=== PATIENT | female | born 1960 | race Caucasian/White ===

== ENCOUNTER 2018-12-23 19:21 | Emergency (ER) | payer MEDICARE, OTHER ==
[~2018-12-23] VITALS: Ht 165.1 cm; Wt 90.9 kg
[2018-12-23] MEDS ORDERED: CITA20TA6 PO (19:25)
[2018-12-23] MEDS ORDERED: MORPHINE 4 MG/ML 1ML VIAL/SYRINGE (J2270) IV ONE (20:00)
[2018-12-23] MEDS ORDERED: ONDANSETRON 4MG/2ML VIAL (J2405) IV ONE (20:00)
[2018-12-23] MEDS ORDERED: NS 1,000 ML IV ONE (20:00)
[2018-12-23 21:08] LABS: BASO % 0.3 % (0.0-1.0); EOS % 0.1 % (0.0-3.0); HEMATOCRIT 40.3 % (36.0-47.0); HEMOGLOBIN 13.2 g/dl (12.0-15.5); LYMPH # 0.9 10^3/uL (1.5-5.0); LYMPH % 6.2 % (24.0-44.0); MEAN CORPUSCULAR HEMOGLOBIN 29.7 pg (27.0-33.0); MEAN CORPUSCULAR HGB CONC 32.8 g/dl (32.0-36.5); MEAN CORPUSCULAR VOLUME 90.6 fl (80.0-96.0); MONO # 0.7 10^3/uL (0.0-0.8); MONO % 4.6 % (0.0-5.0); NEUTROPHILS # 12.3 10^3/uL (1.5-8.5); NEUTROPHILS % 88.2 % (36.0-66.0); PLATELET COUNT, AUTOMATED 250 10^3/uL (150-450); RED BLOOD COUNT 4.45 10^6/uL (4.00-5.40)
[2018-12-23] MEDS ORDERED: ISOVUE-370 76% 100ML VIAL (Q9967) As Ordered ONE (21:40)
[2018-12-23] MEDS ORDERED: fentaNYL 100 MCG/2 ML INJECTION (J3010) IV ONE (22:00)
[2018-12-23] MEDS ORDERED: PERC5TAB12 PO (23:56)
[2018-12-24] MEDS ORDERED: OXYCODONE/APAP 5MG/325MG(BULK FOR ED) 1 TABLET PO ONE
[2018-12-24 00:52] VITALS: BP 113/61
--- NOTE | 2018-12-24 08:52 | REP ---
CT of the chest with IV contrast: Clinical history, acute by horse multiple times on the left side. There are no comparisons. There is no pneumothorax, hemothorax or pulmonary contusion. There is a small focal zone of atelectasis at the inferior tip of the lingula. The thoracic aorta is unremarkable. There is no mediastinal hematoma. Cardiac size is normal. There is no pericardial effusion. No clavicle or scapular fractures are identified. No rib fractures are identified. No vertebral body, or sternal fractures are identified. There is a small hiatal hernia. There are small areas of edema in the subcutaneous fat in the left axilla. Impression: Essentially negative CT scan of the chest except for focal areas of subcutaneous soft tissue edema in the left axilla. Electronically Signed by Kwesi Adams MD 12/24/2018 08:44 A
--- NOTE | 2018-12-24 09:03 | REP ---
CT of the abdomen and pelvis with IV contrast: The patient was kicked by horse several times on the left side. There are no comparisons. The studies performed contiguously with the chest CT this same date. There is no pneumoperitoneum or hemoperitoneum. There are no lumbar, sacral, pelvic or hip fractures. There is a small hiatal hernia. The hepatic parenchyma is mildly hypodense but otherwise unremarkable. This is compatible with hepato steatosis. The gallbladder, pancreas and spleen are unremarkable. The adrenals are unremarkable. The renal calyces and renal pelves appear dilated bilaterally, however the ureters are not dilated. This is is bilateral UPJ strictures or could be artifact from multiple bilateral parapelvic cysts or could be combination. There is no renal cortical hematoma. There is no para renal hematoma. The abdominal aorta is unremarkable. There is no periaortic or retroperitoneal hematoma. There is no focal or diffuse bowel wall thickening. The mesentery is unremarkable. There is a tiny fat containing umbilical hernia. Pelvis: There is no free fluid. The uterus, adnexa and bladder are unremarkable. There is diverticulosis without diverticulitis in the descending colon and sigmoid colon. The pelvic bowel loops are otherwise unremarkable. There are phleboliths in the pelvis. Impression: There is no pneumo perineum or hemoperitoneum. No fractures are identified. There is no solid organ injury. There is bilateral hydronephrosis versus bilateral parapelvic cysts versus combination. Diverticulosis without diverticulitis. Hepato steatosis. There are no comparison studies in our film file. Small hiatal hernia. Electronically Signed by Kwesi Adams MD 12/24/2018 08:55 A
--- NOTE | 2018-12-24 09:12 | REP ---
Lumbar spine five views: The patient was kicked by horse. Vertebral body heights and alignment are normal. There is degenerative disc disease at every lumbar level. There is no spondylolysis or spondylolisthesis. The pedicles are unremarkable. Sacroiliac articulations are unremarkable. The facet articulations are unremarkable. Impression: Degenerative disc disease at every lumbar level. No compression deformity, fracture or listhesis. There are numerous calcifications in the pelvis, likely phleboliths. Electronically Signed by Kwesi Adams MD 12/24/2018 09:03 A
--- NOTE | 2018-12-24 09:13 | REP ---
Left tibia-fibula five views : There is no fracture or dislocation. Mineralization and joint spaces are normal. There are no calcifications or foreign bodies. There is an accessory ossicle at the tip of the fibula. Impression: Negative Left tibia-fibula . Electronically Signed by Kwesi Adams MD 12/24/2018 09:04 A
--- NOTE | 2018-12-24 09:14 | REP ---
Left knee five views : There is no fracture or dislocation. There is no effusion Mineralization and joint spaces are normal. There are no calcifications or foreign bodies. There is tricompartment osteoarthritis. Impression: Tricompartment osteoarthritis. No fracture or effusion. Otherwise, negative left knee. Electronically Signed by Kwesi Adams MD 12/24/2018 09:05 A
--- NOTE | 2018-12-24 09:17 | REP ---
Left femur four views : There is no fracture or dislocation. Mineralization and joint spaces are normal. There are no calcifications or foreign bodies. Impression: Negative left femur . Electronically Signed by Kwesi Adams MD 12/24/2018 09:07 A
== END 2018-12-24 00:55 | disposition home or self-care (01) ==
LOC: M ED 19:21
DX: S30.1XXA Contusion of abdominal wall, initial encounter (principal); S80.12XA Contusion of left lower leg, initial encounter; S40.012A Contusion of left shoulder, initial encounter; W55.12XA Struck by horse, initial encounter; Y92.018 Other place in single-family (private) house as the place of occurrence of the external cause; N13.5 Crossing vessel and stricture of ureter without hydronephrosis; Z79.899 Other long term (current) drug therapy; Z87.891 Personal history of nicotine dependence
CPT/HCPCS: 71260; 72110; 73552; 73564; 73590; 74177; 80047; 85025; 96361; 96374; 96375; 99284; J2270; J2405; J3010; Q9967

== ENCOUNTER → 2020-06-20 | Outpatient (REF) | payer MEDICARE ==
[~2020-06-20] MED LIST: CITA20TA6 PO; PERC5TAB12 PO
[2020-06-20 12:06] LABS: BASO % 0.5 % (0.0-1.0); EOS # 0.1 10^3/uL (0.0-0.5); EOS % 1.1 % (0.0-3.0); HEMATOCRIT 45.9 % (36.0-47.0); HEMOGLOBIN 14.7 g/dl (12.0-15.5); LYMPH # 1.3 10^3/uL (1.5-5.0); LYMPH % 20.7 % (24.0-44.0); MEAN CORPUSCULAR HEMOGLOBIN 28.7 pg (27.0-33.0); MEAN CORPUSCULAR VOLUME 89.6 fl (80.0-96.0); MONO # 0.3 10^3/uL (0.0-0.8); NEUTROPHILS # 4.5 10^3/uL (1.5-8.5); NEUTROPHILS % 72.4 % (36.0-66.0); PLATELET COUNT, AUTOMATED 290 10^3/uL (150-450); RED BLOOD COUNT 5.12 10^6/uL (4.00-5.40); WHITE BLOOD COUNT 6.2 10^3/uL (4.0-10.0)
[2020-06-20 12:49] LABS: ALBUMIN 3.6 GM/DL (3.2-5.2); ALT/SGPT 27 U/L (12-78); BILIRUBIN,TOTAL 0.4 MG/DL (0.2-1.0); BLOOD UREA NITROGEN 22 MG/DL (7-18); CALCIUM LEVEL 8.8 MG/DL (8.8-10.2); CARBON DIOXIDE LEVEL 29 MEQ/L (21-32); CHLORIDE LEVEL 106 MEQ/L (98-107); CHOLESTEROL LEVEL 279 MG/DL (<200); CREATININE FOR GFR 0.77 MG/DL (0.55-1.30); GLOMERULAR FILTRATION RATE > 60.0 (>45); GLUCOSE, FASTING 101 MG/DL (70-100); HDL CHOLESTEROL 44 MG/DL (>40); LDL CHOLESTEROL 190 MG/DL (<100); NON-HDL-C 235 MG/DL; POTASSIUM SERUM 5.2 MEQ/L (3.5-5.1); SODIUM LEVEL 138 MEQ/L (136-145); TOTAL PROTEIN 6.6 GM/DL (6.4-8.2); TRIGLYCERIDES LEVEL 224 MG/DL (<150)
== END ==
LOC: M SFHCCLAY 09:06
PROVIDERS: ATTEND Family Medicine
DX: F32.1 Major depressive disorder, single episode, moderate (principal); J45.20 Mild intermittent asthma, uncomplicated; I10 Essential (primary) hypertension

== ENCOUNTER → 2020-08-14 | Outpatient (REF) | payer MEDICARE ==
[2020-08-14 17:19] LABS: CHOLESTEROL RISK RATIO 3.959 (<5)
== END ==
LOC: M SFHCCLAY 10:09
PROVIDERS: ATTEND Family Medicine
DX: E78.00 Pure hypercholesterolemia, unspecified (principal)

== ENCOUNTER → 2021-01-09 | Outpatient (REF) | payer MEDICARE, OTHER ==
[2021-01-09 11:45] LABS: ALBUMIN 3.2 GM/DL (3.2-5.2); ALT/SGPT 37 U/L (12-78); BILIRUBIN,TOTAL 0.5 MG/DL (0.2-1.0); BLOOD UREA NITROGEN 22 MG/DL (7-18); CARBON DIOXIDE LEVEL 27 MEQ/L (21-32); CHLORIDE LEVEL 110 MEQ/L (98-107); CHOLESTEROL LEVEL 168 MG/DL (<200); CHOLESTEROL RISK RATIO 4.307 (<5); CREATININE FOR GFR 0.88 MG/DL (0.55-1.30); GLOMERULAR FILTRATION RATE > 60.0 (>45); GLUCOSE, FASTING 115 MG/DL (70-100); HDL CHOLESTEROL 39 MG/DL (>40); LDL CHOLESTEROL 88 MG/DL (<100); NON-HDL-C 129 MG/DL; POTASSIUM SERUM 4.6 MEQ/L (3.5-5.1); SODIUM LEVEL 142 MEQ/L (136-145); TOTAL PROTEIN 6.2 GM/DL (6.4-8.2); TRIGLYCERIDES LEVEL 207 MG/DL (<150)
== END ==
LOC: M SFHCCLAY 08:13
PROVIDERS: ATTEND Family Medicine
DX: E78.00 Pure hypercholesterolemia, unspecified (principal); Z23 Encounter for immunization
CPT/HCPCS: 80053; 80061; 90682; G0008; G0463

== ENCOUNTER → 2021-12-16 | Outpatient (REF) | payer MEDICARE ==
[2021-12-16 17:27] LABS: HEMATOCRIT 42.9 % (36.0-47.0); HEMOGLOBIN 13.7 g/dl (12.0-15.5); MEAN CORPUSCULAR HEMOGLOBIN 28.9 pg (27.0-33.0); MEAN CORPUSCULAR HGB CONC 31.9 g/dl (32.0-36.5); MEAN CORPUSCULAR VOLUME 90.5 fl (80.0-96.0); PLATELET COUNT, AUTOMATED 289 10^3/uL (150-450); RED BLOOD COUNT 4.74 10^6/uL (4.00-5.40); WHITE BLOOD COUNT 6.3 10^3/uL (4.0-10.0)
[2021-12-16 18:09] LABS: ALBUMIN 3.5 GM/DL (3.2-5.2); ALT/SGPT 34 U/L (12-78); BILIRUBIN,TOTAL 0.4 MG/DL (0.2-1.0); BLOOD UREA NITROGEN 20 MG/DL (7-18); CARBON DIOXIDE LEVEL 29 MEQ/L (21-32); CHLORIDE LEVEL 108 MEQ/L (98-107); CHOLESTEROL LEVEL 277 MG/DL (<200); CHOLESTEROL RISK RATIO 6.756 (<5); CREATININE FOR GFR 0.84 MG/DL (0.55-1.30); GLOMERULAR FILTRATION RATE > 60.0 (>45); GLUCOSE, FASTING 106 MG/DL (70-100); HDL CHOLESTEROL 41 MG/DL (>40); LDL CHOLESTEROL 179 MG/DL (<100); NON-HDL-C 236 MG/DL; SODIUM LEVEL 141 MEQ/L (136-145); TOTAL PROTEIN 6.6 GM/DL (6.4-8.2); TRIGLYCERIDES LEVEL 286 MG/DL (<150)
== END ==
LOC: M SFHCCLAY 09:42
PROVIDERS: ATTEND Family Medicine
DX: E78.00 Pure hypercholesterolemia, unspecified (principal); F32.1 Major depressive disorder, single episode, moderate

== ENCOUNTER → 2022-09-23 | Outpatient (CLI) | payer MEDICARE | LOC: M WHC 08:12 | PROVIDERS: ATTEND Family Medicine | DX: Z12.31 Encounter for screening mammogram for malignant neoplasm of breast (principal) ==

== ENCOUNTER → 2023-10-20 | Outpatient (CLI) | payer OTHER | LOC: M WHC 09:49 | PROVIDERS: ATTEND Family Medicine | DX: Z12.31 Encounter for screening mammogram for malignant neoplasm of breast (principal) ==

== ENCOUNTER → 2025-01-11 | Outpatient (REF) | payer MEDICARE ==
[2025-01-11 18:10] LABS: AMORPHOUS SEDIMENT SMALL (NEGATIVE); APPEARANCE, URINE HAZY (CLEAR); BACTERIA, URINE AUTO NEGATIVE (NEGATIVE); BILIRUBIN, URINE AUTO NEGATIVE (NEGATIVE); BLOOD, URINE BLOOD NEGATIVE (NEGATIVE); GLUCOSE, URINE (UA) AUTO NEGATIVE (NEGATIVE); KETONE, URINE AUTO NEGATIVE (NEGATIVE); LEUKOCYTE ESTERASE, URINE AUTO NEGATIVE (NEGATIVE); MUCUS, URINE SMALL (NEGATIVE); NITRITE, URINE AUTO NEGATIVE (NEGATIVE); PROTEIN, URINE AUTO NEGATIVE (NEGATIVE); RBC, URINE AUTO 1 /HPF (0-3); SPECIFIC GRAVITY URINE AUTO 1.026 (1.002-1.035); SQUAMOUS EPITHELIAL CELL UR AU 4 /HPF (0-6); UROBILINOGEN, URINE AUTO 0.2 mg/dL (0.0-2.0); WBC, URINE AUTO 1 /HPF (0-3)
== END ==
LOC: M SFHCCLAY 14:25
PROVIDERS: ATTEND Physician Assistant
DX: R31.29 Other microscopic hematuria (principal)

== ENCOUNTER → 2025-02-19 | Outpatient (REF) | payer MEDICARE ==
[2025-02-19 17:21] LABS: AMORPHOUS SEDIMENT SMALL (NEGATIVE); APPEARANCE, URINE TURBID (CLEAR); BACTERIA, URINE AUTO 1+ (NEGATIVE); BILIRUBIN, URINE AUTO NEGATIVE (NEGATIVE); BLOOD, URINE BLOOD 1+ (NEGATIVE); GLUCOSE, URINE (UA) AUTO NEGATIVE (NEGATIVE); KETONE, URINE AUTO NEGATIVE (NEGATIVE); LEUKOCYTE ESTERASE, URINE AUTO TRACE (NEGATIVE); MUCUS, URINE LARGE (NEGATIVE); NITRITE, URINE AUTO NEGATIVE (NEGATIVE); PROTEIN, URINE AUTO 1+ mg/dL (NEGATIVE); RBC, URINE AUTO 2 /HPF (0-3); SPECIFIC GRAVITY URINE AUTO 1.025 (1.002-1.035); SQUAMOUS EPITHELIAL CELL UR AU 26 /HPF (0-6); UROBILINOGEN, URINE AUTO 0.2 mg/dL (0.0-2.0); WBC, URINE AUTO 10 /HPF (0-3)
== END ==
LOC: M SMT 16:54
PROVIDERS: ATTEND Urology
DX: R31.29 Other microscopic hematuria (principal)

== ENCOUNTER → 2025-02-26 | Outpatient (REF) | payer MEDICARE ==
[2025-02-26 18:32] LABS: ESTIMATED AVERAGE GLUCOSE 123.0 MG/DL (60-110)
[2025-02-26 18:48] LABS: ALT/SGPT 19.0 U/L (7.0-40); AST/SGOT 18.0 U/L (<34); CALCIUM LEVEL 9.1 MG/DL (8.3-10.6); CARBON DIOXIDE LEVEL 28.0 MMOL/L (20-31); CHLORIDE LEVEL 104.0 MMOL/L (98-107); CHOLESTEROL LEVEL 246.0 MG/DL (<200); CHOLESTEROL RISK RATIO 5.89 (<5); CREATININE FOR GFR 1.0 MG/DL (0.55-1.30); GLOMERULAR FILTRATION RATE 62.1 (>45); LDL CHOLESTEROL 151.3 MG/DL (<100); NON-HDL-C 204.3 MG/DL; POTASSIUM SERUM 4.5 MMOL/L (3.5-5.1); SODIUM LEVEL 141.0 MMOL/L (136-145); TRIGLYCERIDES LEVEL 265.0 MG/DL (<150)
== END ==
LOC: M SFHCCLAY 14:28
PROVIDERS: ATTEND Nurse Practitioner Family
DX: I10 Essential (primary) hypertension (principal); F32.1 Major depressive disorder, single episode, moderate; E78.00 Pure hypercholesterolemia, unspecified; J45.20 Mild intermittent asthma, uncomplicated; E66.01 Morbid (severe) obesity due to excess calories; Z79.899 Other long term (current) drug therapy